=== PATIENT | female | born 1970 | race African-American/Black ===

== ENCOUNTER 2018-10-10 07:17 | Day surgery (SDC) | payer OTHER ==
[2018-10-06 18:22] VITALS: BMI 36.8
[2018-10-10] MEDS ORDERED: MIDAZOLAM HCL 2 MG/2 ML SINGLE DOSE VIAL ONE ×3 (08:36→10:03)
[2018-10-10] MEDS ORDERED: DEXAMETHASONE SOD PHOSPHATE 4 MG/1 ML VIAL ONE (08:37)
[2018-10-10] MEDS ORDERED: LIDOCAINE HCL/PF 2% SDV 5ML VIAL ONE (08:37)
[2018-10-10] MEDS ORDERED: ONDANSETRON 4 MG/2 ML VIAL ONE (08:37)
[2018-10-10] MEDS ORDERED: BUPIVACAINE HCL/PF 0.5% (5MG/ML) 10 ML VIAL ONE (09:05)
--- NOTE | 2018-10-10 09:51 | PN ---
Progress Note (short form) - Note Progress Note: 43F s/p CHARANJIT w/MFC chondroplasty POD #0. -Pain control: Percocet ordered. -WBAT RLE. -f/u post-op trial of void. -Diet as tolerated. -Keep dressing clean & dry; d/c on Saturday & place waterproof Band-Aids over incision sites. -Cane vs crutches. -f/u [facility] [place] office Saturday10/17/2018; call for appointment; [phone]. Oj Lee MD (Orthopaedic Surgery).
--- NOTE | 2018-10-10 09:52 | OP ---
Operative Note - Note: Operative Date: 10/10/18 Pre-Operative Diagnosis: Tri-compartment osteoarthritis right knee Operation: SARK Findings: Tourniquet Pressure: 300mmHg Tourniqet Time: 17 minutes Post-Operative Diagnosis: Same as Pre-op Surgeon: Oj Lee Rubber Mixer: Sony Lee Anesthesiologist/RETURNED MATERIALS INSPECTOR: Manuel Mcmahan Anesthesia: General Estimated Blood Loss (mls): 0 Fluid Volume Replaced (mls): 500 (Crystalloid) Operative Report Dictated: Yes
[2018-10-10] MEDS ORDERED: PATIENT'S OWN MEDICATION (NON-FORMULARY) (Diazepam [Diazepam] 10 MG) PO SCH (10:00)
[2018-10-10] MEDS ORDERED: ceFAZolin SODIUM 1 GM VIAL ONE (10:00)
[2018-10-10] MEDS ORDERED: metFORMIN HCL 500 MG TABLET (FP) PO SCH (10:00)
[2018-10-10] MEDS ORDERED: EPINEPHrine 1:1,000 1 MG/1 ML - 30ML VIAL (INJECTION) ONE (10:12)
[2018-10-10] MEDS ORDERED: BUPIVACAINE HCL/PF 2.5 MG/ML - 30 ML VIAL IJ ONE (10:42)
[2018-10-10] MEDS ORDERED: methylPREDNISolone ACET (DEPO) 40 MG/1 ML VIAL ONE ×2 (10:42→10:43)
--- NOTE | 2018-10-10 12:54 | OP ---
DATE OF OPERATION: DATE OF DICTATION: 10/10/2018 SURGEON: Oj Lee MD [place] SALESPERSON: Sony Lee MD PREOPERATIVE DIAGNOSIS: Possible tricompartment osteoarthritis knee with associated medial and lateral meniscal tears. 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 ANESTHESIA: Conscious sedation with spinal anesthesia. ANTIBIOTIC GIVEN: Kefzol 2 g. TOURNIQUET TIME: 17 minutes. DESCRIPTION OF PROCEDURE: The patient was correctly identified and brought into the operating room. The right lower extremity was prepped and draped in the routine manner with a Betadine scrub solution, wiped off of alcohol, DuraPrep applied. Time-out was called. Imaging was available for intraoperative evaluation. Arthroscopic instrumentation introduced via anterolateral approach. The arthroscopic findings were as follows: The actual joint fluid was significantly contaminated with floating fibular material, which was readily washed out. The synovium appeared moderately angrily synovitic with some areas of nodular synovitis. This was a diffuse synovitis. The retropatellar surface had patchy Outerbridge 3 and 4 level changes. The trochlear groove was reasonably well maintained but does have Outerbridge level 2 changes on the actual groove itself. The medial femoral condyle revealed Outerbridge level 1 changes. This was evidenced by an irregular, nonhomogeneous appearance of the actual hyaline cartilage. The medial meniscus on the medial side had a previous partial medial meniscectomy. The posterior horn of the medial meniscus was deficient. No overt tibial plateau changes on the medial side. The intercondylar notch had a significant crowding osteophyte. The ACL appeared deficient and fragmented. The lateral compartment revealed diffuse denudation of cartilage. The lateral meniscus was a fragmented mass of tissue, which was sliding in and out of the joint compartment itself. The wounds were thoroughly lavaged. This was a diagnostic lavage arthroscopy to reveal the fact that no definitive arthroscopic surgery could be performed. This lady needs a right total knee arthroplasty. The knee was instilled with Marcaine steroid. There was Depo-Medrol . The wound was closed with 3-0 nylon and a light bandage applied. No complications. Oj Lee MD [id number]
[2018-10-10 13:58] VITALS: BP 126/80; PULSE 67; TEMP 97.6
[2018-10-10] MEDS ORDERED: oxyCODONE HCL 5 MG TABLET PO PRN (15:12)
[2018-10-10] MEDS ORDERED: ONDANSETRON 4 MG/2 ML VIAL IVPUSH PRN (15:12)
[2018-10-10] MEDS ORDERED: LACTATED RINGERS SOLUTION 1,000 ML IV SCH (15:15)
== END 2018-10-10 13:58 | disposition home or self-care (01) ==
LOC: FASU 07:17
PROVIDERS: ATTEND Orthopaedic Surgery Orthopaedic Surgery of the Spine
PROC: 0SJC4ZZ Inspection of Right Knee Joint, Percutaneous Endoscopic Approach (ICD-10-PCS; principal; 2018-10-10 10:33)
DX: M17.11 Unilateral primary osteoarthritis, right knee (principal); M23.221 Derangement of posterior horn of medial meniscus due to old tear or injury, right knee; M23.261 Derangement of other lateral meniscus due to old tear or injury, right knee
CPT/HCPCS: 82962; 94760

== ENCOUNTER 2022-01-10 08:12 | Day surgery (SDC) | payer OTHER ==
[2021-12-15 11:06] VITALS: BMI 38.8
[2022-01-10] MEDS ORDERED: BUPIVACAINE HCL/PF 0.5% (5 MG/ML) 30 ML VIAL IJ ONE (12:01)
[2022-01-10] MEDS ORDERED: FENTANYL CITRATE/PF 50 MCG/ML VIAL ONE (12:02)
[2022-01-10] MEDS ORDERED: BUPIVACAINE HCL/PF 2.5 MG/ML - 30 ML VIAL IJ ONE (12:02)
[2022-01-10] MEDS ORDERED: MIDAZOLAM HCL 2 MG/2 ML SINGLE DOSE VIAL ONE ×4 (12:02→14:16)
[2022-01-10] MEDS ORDERED: ONDANSETRON 4 MG/2 ML VIAL ONE (13:02)
[2022-01-10] MEDS ORDERED: VANCOMYCIN 1,000 MG VIAL (RESTRICTED TO ID ONLY) ONE (13:02)
[2022-01-10] MEDS ORDERED: TRANEXAMIC ACID 1000 MG/10 ML VIAL ONE (13:02)
[2022-01-10] MEDS ORDERED: DEXAMETHASONE SOD PHOSPHATE 4 MG/1 ML VIAL ONE (13:02)
[2022-01-10] MEDS ORDERED: PROPOFOL 20 ML ONE ×3 (14:17→15:29)
[2022-01-10] MEDS ORDERED: MAG HYDROX/AL HYDROX/SIMETH 30 ML UNIT-DOSE CUP PO PRN (15:16)
[2022-01-10] MEDS ORDERED: PATIENT'S OWN MEDICATION (NON-FORMULARY) (Omeprazole [Omeprazole] 20 MG Tablet.Dr) PO PRN (15:16)
[2022-01-10] MEDS ORDERED: HYDROXYZINE HCL PO PRN (15:16)
[2022-01-10] MEDS ORDERED: ONDANSETRON 4 MG/2 ML VIAL IVPUSH PRN (15:16)
[2022-01-10] MEDS ORDERED: METHOCARBAMOL 500 MG TABLET PO PRN (15:16)
[2022-01-10] MEDS ORDERED: MAGNESIUM HYDROX 2400MG/30ML ORAL SUSPENSION 30 ML CUP PO PRN (15:16)
[2022-01-10] MEDS ORDERED: LACTATED RINGERS SOLUTION 1,000 ML IV SCH ×2 (15:30→16:15)
[2022-01-10] MEDS ORDERED: ceFAZolin SODIUM 1 GM VIAL ONE ×2 (15:36→21:44)
[2022-01-10] MEDS ORDERED: ACETAMINOPHEN 1000 MG/100 ML BAG IVPB ONE (16:10)
[2022-01-10] MEDS ORDERED: ACETAMINOPHEN INJECTION 100 ML IVPB ONE (16:18)
[2022-01-10] MEDS: oxyCODONE HCL 5 MG TABLET PO PRN ×3 (18:10→22:59)
[2022-01-10] MEDS ORDERED: DEXTROSE 5%-WATER - 50 ML IVPB ONE (21:44)
[2022-01-10] MEDS: ASPIRIN 81 MG CHEWABLE TABLETS PO SCH (21:47)
[2022-01-10] MEDS: SENNOSIDES/DOCUSATE COMBO (SENNA PLUS) TABLET (UD) PO SCH (21:47)
[2022-01-10] MEDS: CEFAZOLIN 2 GM in DEXTROSE 5%-WATER - 50 ML IVPB SCH (21:47)
[2022-01-10] MEDS: oxyCODONE HCL 10 MG SUSTAINED ACTING TABLET PO SCH (21:47)
[2022-01-10] MEDS: CELECOXIB 200 MG CAPSULE PO SCH (21:47)
[2022-01-11] MEDS: CEFAZOLIN 2 GM in DEXTROSE 5%-WATER - 50 ML IVPB SCH ×2 (02:38→09:40)
[2022-01-11] MEDS: oxyCODONE HCL 5 MG TABLET PO PRN ×5 (02:46→21:05)
[2022-01-11] MEDS: glipiZIDE-XL 2.5 MG TAB.ER.24 PO SCH ×3 (06:14→16:15)
[2022-01-11] MEDS: FLUTICASONE PROP 0.05% 16 GM NASAL SPRAY NS SCH ×2 (06:18→22:17)
[2022-01-11 08:25] LABS: CALCIUM 8.8 mg/dl (8.5-10); CREATININE 0.9 mg/dl (0.55-1.3)
[2022-01-11 08:30] LABS: HEMATOCRIT 35.9 % (32.4-45.2); HEMOGLOBIN 12.2 G/dL (10.7-15.3); MCH 25.4 pg (25.7-33.7); MCHC 33.8 g/dl (32.0-36.0); MEAN PLT VOLUME 8.7 fl (7.5-11.1); PLATELET COUNT 264.9 10^3/uL (134-434); RBC 4.79 10^6/uL (3.60-5.2); RDW 17.2 % (11.6-15.6); WHITE BLOOD COUNT 16.5 10^3/uL (4.0-10.8)
[2022-01-11] MEDS: CELECOXIB 200 MG CAPSULE PO SCH ×2 (10:07→21:04)
[2022-01-11] MEDS: ASPIRIN 81 MG CHEWABLE TABLETS PO SCH ×2 (10:07→21:04)
[2022-01-11] MEDS: oxyCODONE HCL 10 MG SUSTAINED ACTING TABLET PO SCH ×2 (10:08→21:04)
[2022-01-11] MEDS: SENNOSIDES/DOCUSATE COMBO (SENNA PLUS) TABLET (UD) PO SCH ×2 (10:09→21:04)
[2022-01-11] MEDS: PANTOPRAZOLE 40 MG TABLET PO SCH (10:10)
[2022-01-11] MEDS ORDERED: ceFAZolin SODIUM 1 GM VIAL ONE (10:32)
[2022-01-11] MEDS ORDERED: DEXTROSE 5%-WATER - 50 ML IVPB ONE (10:33)
[2022-01-11] MEDS: INSULIN (NOVOLOG) ASPART 100 UNITS/ML 10ML VIAL SQ SCH (22:17)
[2022-01-12] MEDS: oxyCODONE HCL 5 MG TABLET PO PRN ×2 (01:46→07:19)
[2022-01-12] MEDS: glipiZIDE-XL 2.5 MG TAB.ER.24 PO SCH (06:16)
[2022-01-12] MEDS: INSULIN (NOVOLOG) ASPART 100 UNITS/ML 10ML VIAL SQ SCH ×3 (06:16→11:30)
[2022-01-12 06:22] VITALS: TEMP 98.5
[2022-01-12 08:03] LABS: HEMATOCRIT 32.1 % (32.4-45.2); HEMOGLOBIN 10.8 G/dL (10.7-15.3); MCH 25.6 pg (25.7-33.7); MCHC 33.7 g/dl (32.0-36.0); MEAN PLT VOLUME 8.6 fl (7.5-11.1); PLATELET COUNT 243.6 10^3/uL (134-434); RBC 4.23 10^6/uL (3.60-5.2); RDW 17.5 % (11.6-15.6); WHITE BLOOD COUNT 12.4 10^3/uL (4.0-10.8)
[2022-01-12] MEDS: FLUTICASONE PROP 0.05% 16 GM NASAL SPRAY NS SCH ×2 (08:28→09:25)
[2022-01-12 09:23] VITALS: BP 142/71; PULSE 84
[2022-01-12] MEDS: ASPIRIN 81 MG CHEWABLE TABLETS PO SCH (09:24)
[2022-01-12] MEDS: SENNOSIDES/DOCUSATE COMBO (SENNA PLUS) TABLET (UD) PO SCH (09:24)
[2022-01-12] MEDS: PANTOPRAZOLE 40 MG TABLET PO SCH (09:24)
[2022-01-12] MEDS: CELECOXIB 200 MG CAPSULE PO SCH (09:24)
[2022-01-12] MEDS: oxyCODONE HCL 10 MG SUSTAINED ACTING TABLET PO SCH (09:25)
== END 2022-01-12 12:55 | disposition home health service (06) ==
LOC: FASU 08:12 → FASUSAT 08:12 → FM/S 17:13 → FASUSAT 01-12 12:55
PROVIDERS: ATTEND Orthopaedic Surgery Orthopaedic Surgery of the Spine
PROC: 0SRC0J9 Replacement of Right Knee Joint with Synthetic Substitute, Cemented, Open Approach (ICD-10-PCS; principal; 2022-01-10 13:30)
DX: M17.11 Unilateral primary osteoarthritis, right knee (principal)
CPT/HCPCS: 27447; C1776; 36415; 73560-TC-RT-FY; 80048; 82962; 85027; 88305-TC; 88311-TC; 94760; 97010-GP; 97116-GP; 97161-GP

== ENCOUNTER 2022-09-12 09:34 | Day surgery (SDC) | payer OTHER ==
[2022-09-11 13:23] VITALS: BMI 38.0
[2022-09-12] MEDS ORDERED: TRIAMCINOLONE ACET 40MG/1ML VIAL ONE (11:21)
[2022-09-12] MEDS ORDERED: PROPOFOL 20 ML ONE (12:04)
[2022-09-12] MEDS ORDERED: MIDAZOLAM HCL 2 MG/2 ML SINGLE DOSE VIAL ONE (12:04)
[2022-09-12] MEDS ORDERED: ePHEDrine SULFATE 50 MG/1 ML AMPULE ONE (12:34)
[2022-09-12] MEDS ORDERED: FENTANYL CITRATE/PF 50 MCG/ML VIAL ONE ×3 (13:52→14:30)
[2022-09-12] MEDS ORDERED: ONDANSETRON 4 MG/2 ML VIAL IVPUSH PRN (13:53)
[2022-09-12] MEDS ORDERED: ACETAMINOPHEN 1000 MG/100 ML BAG IVPB ONE (13:53)
[2022-09-12] MEDS ORDERED: oxyCODONE HCL 5 MG TABLET PO PRN (13:53)
[2022-09-12] MEDS ORDERED: ACETAMINOPHEN INJECTION 100 ML IVPB ONE (13:55)
[2022-09-12] MEDS ORDERED: LACTATED RINGERS SOLUTION 1,000 ML IV SCH (14:00)
[2022-09-12] MEDS ORDERED: ONDANSETRON 4 MG/2 ML VIAL ONE (14:32)
[2022-09-12 15:28] VITALS: PULSE 65; RESP 18
[2022-09-12 15:37] VITALS: BP 128/74; TEMP 98
== END 2022-09-12 16:45 | disposition home or self-care (01) ==
LOC: FASU 09:34
PROVIDERS: ATTEND Orthopaedic Surgery Orthopaedic Surgery of the Spine
PROC: 3E0U33Z Introduction of Anti-inflammatory into Joints, Percutaneous Approach (ICD-10-PCS; 2022-09-12)
PROC: 3E0U3BZ Introduction of Anesthetic Agent into Joints, Percutaneous Approach (ICD-10-PCS; 2022-09-12)
PROC: 0SCD4ZZ Extirpation of Matter from Left Knee Joint, Percutaneous Endoscopic Approach (ICD-10-PCS; principal; 2022-09-12 12:55)
DX: M23.42 Loose body in knee, left knee (principal); M65.862 Other synovitis and tenosynovitis, left lower leg; M94.262 Chondromalacia, left knee
CPT/HCPCS: 94760